=== PATIENT | female | born 1955 | race Native Hawaiian/Other Pacific Islander ===

== ENCOUNTER → 2018-07-12 11:12 | Outpatient (CLI) | payer OTHER, SELFPAY ==
[2018-07-12 11:56] LABS: Add Manual Diff / Slide Review NO; Basophils Percent Auto 0.7 % (0-2); Hemoglobin 14.9 g/dL (12.0-16.0); Lymphocytes Percent Auto 36.4 % (25-40); Mean Corpuscular HGB Conc 35.5 % (30-36); Mean Corpuscular Volume 87.5 fL (80-100); Monocytes Percent Auto 6.1 % (3-14); Neutrophils Absolute Auto 4300 /uL (1500-7000); Neutrophils Percent Auto 49.8 % (50-75); Platelet Count 270 X10^3/uL (150-400); Red Cell Distribution Width 14.6 % (11.6-14.8); White Blood Cell Count 8.6 X10^3/uL (4.5-11.0)
[2018-07-12 12:03] LABS: Alanine Aminotransferase 31 IU/L (9-52); Albumin 4.9 g/dL (3.5-5.0); Albumin Globulin Ratio 1.3 (1.0-2.8); Alkaline Phosphatase 54 U/L (38-126); Aspartate Aminotransferase 26 IU/L (14-36); BUN Creatinine Ratio 13.8 (6-22); Bilirubin Total 0.5 mg/dL (0.2-1.3); Blood Urea Nitrogen 11 mg/dL (7-17); Calcium 9.5 mg/dL (8.4-10.2); Carbon Dioxide 27 mmol/L (22-32); Chloride 104 mmol/L (98-107); Estimated Glomerular Filt Rate > 60.0 mL/min (>60); Globulin 3.7 g/dL (1.7-4.1); Glucose 71 mg/dL (80-110); HEMOLYSIS < 15 (0-50); Sodium 142 mmol/L (137-145); Total Protein 8.6 g/dL (6.3-8.2)
[2018-07-12 12:06] LABS: Rheumatoid Factor 14.2 IU/mL (<12.0)
[2018-07-12 12:17] LABS: Erythrocyte Sedimentation Rate 1 MM/HR (0-20)
[2018-07-14 13:21] LABS: ANA Screen NEGATIVE (Negative); DNA Antibody Crithidia IFA NEGATIVE (Negative); Rheumatoid Factor 24 IU/mL (< 14); Sjogren Antiboday SS-A <1.0 NEG AI (<1.0 NEGATIVE); Sjogren Antiboday SS-B <1.0 NEG AI (<1.0 NEGATIVE); Sm Antibody <1.0 NEG AI (<1.0 NEGATIVE); Sm/RNP Antibody <1.0 NEG AI (<1.0 NEGATIVE)
[2018-07-14 13:48] LABS: CCP Antibody (IgG) < 16 Units (< 20)
== END ==
PROVIDERS: Family Provider Family Medicine; PCP Family Medicine; Visit Provider Physician Assistant
DX: R05 Cough (principal); R06.00 Dyspnea, unspecified; R06.2 Wheezing; Z82.69 Family history of other diseases of the musculoskeletal system and connective tissue
CPT/HCPCS: 36415; 80053; 83516; 85025; 85651; 86038; 86430

== ENCOUNTER → 2023-01-04 15:04 | Outpatient (CLI) | payer OTHER, MEDICARE, SELFPAY | PROVIDERS: Family Provider Family Medicine; PCP Family Medicine; Visit Provider Nurse Practitioner Family | DX: R10.9 Unspecified abdominal pain (principal) | CPT/HCPCS: 87086 ==

== ENCOUNTER 2023-05-28 19:18 | Emergency (ER) | payer OTHER, MEDICARE, SELFPAY ==
--- NOTE | 2023-05-28 19:29 | ED_ITS ---
HPI - General Adult General Chief complaint: Fall Stated complaint: Migraine T-4 Time Seen by Provider: 05/28/23 19:23 Source: patient Mode of arrival: Ambulatory Limitations: no limitations History of Present Illness HPI narrative: Patient is a 67-year-old female. Not on anticoagulation. Is here for evaluation of headache and neck pain. She states that 4 days ago she was at a [employer]. She was sitting on a stool. The person next to her was falling out of her chair so she leaned over to try to help this individual causing herself to fall and hit her head on the ground. There was no loss of consciousness. She is not on blood thinners. Since that time she is had a headache all over her head. Feels like a pressure in her head. Is also having neck pain. No fevers. No chest pain or shortness of breath. She did take some Tylenol this morning without any improvement and then Tylenol and ibuprofen before coming here to the emergency department. She has had headaches in the past but not like this. Related Data Previous Rx's Medication Instructions Recorded Spacer #1 ea 07/12/18 albuterol sulfate 90 mcg/actuation 1 puff inhalation Q6H PRN 07/28/18 aerosol inhaler (ProAir HFA) shortness of breath or wheezing #18 grams fluticasone propionate 110 1 puff inhalation BID #12 grams 07/28/18 mcg/actuation HFA aerosol inhaler (Flovent HFA) Allergies Allergy/AdvReac Type Severity Reaction Status Date / Time levofloxacin Allergy Severe trouble Verified 05/28/23 19:30 breathing amoxicillin [From Augmentin] Allergy Intermediate hives Verified 05/28/23 19:30 clavulanic acid Allergy Intermediate hives Verified 05/28/23 19:30 [From Augmentin] Review of Systems Constitutional Constitutional: Reports system reviewed and no additional complaints, except as documented ENT Ears, Nose, Mouth, and Throat: Reports system reviewed and no additional complaints, except as documented Cardiovascular Cardiovascular: Reports system reviewed and no additional complaints, except as documented Respiratory Respiratory: Reports system reviewed and no additional complaints, except as documented Neurologic Neurologic: Reports system reviewed and no additional complaints, except as documented Hematologic/Lymphatic On Anticoagulants: No Patient History Social History Smoking Status: Never smoker second hand exposure: Yes (sometimes, I go to the casion.) alcohol intake: current (1 to 2 glasses of wine about twice a week.) substance use type: does not use Smoking Status: Never smoker Exam Initial Vital Signs Initial Vital Signs: Vital Signs Temperature 97.9 F 05/28/23 19:32 Pulse Rate 60 05/28/23 19:32 Respiratory Rate 18 05/28/23 19:32 Blood Pressure 169/76 H 05/28/23 19:32 Pulse Oximetry 99 05/28/23 19:32 Oxygen Delivery Method Room Air 05/28/23 19:32 HENNH Head: normal to inspection, normocephalic, atraumatic, No hematoma, No laceration, No palpable skull fracture and No raccoon eyes Resp Effort & Inspection: normal respiratory effort Auscultation: clear to auscultation bilaterally Cardio Rate: regular rate Rhythm: regular rhythm Back/Spine/Pelvis Cervical Spine: cervical ROM normal, cervical muscular tenderness and cervical spinal tenderness Neuro General: patient alert, patient awake, patient oriented x3 and moves all extremities Speech: speech normal Sensory Exam: no sensory deficits noted Extrem General: normal to inspection Scores Russian CT Head Rule Age <16 years old: No Patient on blood thinners: No Seizure after injury: No Exclusion: Patient NOT Excluded, Proceed to next steps GCS < 15 at 2 hr post trauma: No Suspected open or depressed skull fracture: No Any sign of basilar skull fracture (hemotympanum, raccoon eyes, Stevens's sign, CSF kerri-/rhinorrhea): No Two or more episodes of vomiting: No Age greater or equal to 65 years: Yes Retrograde amnesia to the event greater or equal to 30 min: No Dangerous Mechanism (pedestrian vs. mv, occupant ejected from mv, fall from >3 ft or > 5 stairs): No Recommendation: Consider CT. The [place] Head CT Rule cannot rule out need for Imaging. GCS Kite coma scale eye opening: Spontaneous Raoul coma scale verbal response: Orientated Raoul coma scale motor response: Obey commands Raoul coma scale total score: 15 Nexus Score for C-Spine Focal Neurologic deficit present: No Midline spinal tenderness present: Yes Altered level of conciousness present: No Intoxication present: No Distracting Injury Present: No Nexus Criteria for C-spine: 1 Course Orders Ordered: ED Orders 05/28/23 19:30 CT cervical spine wo con Stat CT head/brain wo con Stat Vital Signs Vital signs: Vital Signs - 8 hr 05/28/23 19:32 Temperature 97.9 F Pulse Rate 60 Respiratory Rate 18 Blood Pressure 169/76 H Pulse Oximetry 99 Oxygen Delivery Method Room Air Medical Decision Making Imaging Data CT scan - head: Radiologist's Impression: PROCEDURE: CT HEAD/BRAIN WO CON INDICATIONS: Severe headache after fall TECHNIQUE: Noncontrast 4.5 mm thick angled axial sections acquired from the foramen magnum to the vertex, with coronal and sagittal reformats. For radiation dose reduction, the following was used: automated exposure control, adjustment of mA and/or kV according to patient size. COMPARISON: [facility], CT, CT CERVICAL SPINE WO CON, 05/28/2023, 19:40. FINDINGS: Image quality: Excellent. CSF spaces: Basal cisterns are patent. No extra-axial fluid collections. The ventricles are symmetric in size and shape. Brain: No intracranial bleeds or masses. There is cerebral volume loss for age, with resultant ventricular and sulcal prominence. There are periventricular and deep white matter chronic small vessel ischemic changes. There is intracranial internal carotid artery atherosclerosis. Skull and face: Calvarium and visualized facial bones appear intact, without suspicious lesions. Sinuses: Visualized sinuses and mastoids are clear. IMPRESSION: No acute intracranial hemorrhage is seen. No acute intracranial pathology. CTA - brain/neck: Radiologist's Impression: PROCEDURE: CT CERVICAL SPINE WO CON INDICATIONS: Headache and neck pain after fall TECHNIQUE: Noncontrast 3 mm thick sections acquired from the skull base to the T4 level. Sagittal and coronal reformats were then constructed. For radiation dose reduction, the following was used: automated exposure control, adjustment of mA and/or kV according to patient size. COMPARISON: [facility], CT, CT HEAD/BRAIN WO CON, 05/28/2023, 19:40. FINDINGS: Image quality: This examination is somewhat limited by quantum mottle artifact. Bones: No fractures or dislocations. Visualized superior ribs are intact. Soft tissues: Prevertebral soft tissues are normal in thickness. No paravertebral hematomas. No apical pneumothoraces. IMPRESSION: Negative for fracture. MDM Narrative Medical decision making narrative: Patient declined the offer for medications here in the ER. Her head CT and cervical spine CT are negative. The event happened 4 days ago. Her symptoms are consistent with concussion. I did discuss this with her. No further workup required here in the ER. Will send home with instructions for symptom treatment. She was given return precautions. She expressed understanding and agreement with plan. Discharge Plan Departure Patient Disposition: Home Clinical Impression: Concussion Instructions: Concussion Activity Restrictions/Additional Instructions: You can eat like normal and sleep like normal. You can take Tylenol and ibuprofen for any headaches. Contact your primary doctor for a follow-up. Return to the emergency department for new or worsening symptoms. Prescriptions: No Action (DME) Spacer Qty: 1 0RF Dose Instruction: As directed Rx Instructions: As directed with inhaler albuterol sulfate [ProAir HFA] 90 mcg/actuation HFA aerosol inhaler 1 puff INHALATION Q6H PRN (Reason: shortness of breath or wheezing) Qty: 18 5RF Rx Instructions: administer with spacer fluticasone propionate [Flovent HFA] 110 mcg/actuation HFA aerosol inhaler 1 puff INHALATION BID Qty: 12 3RF Referrals: Autumn Davison DO [Primary Care Provider] - Stand Alone Forms: Patient Portal/API
[2023-05-28 19:32] VITALS: BP 169/76; PULSE 60; RESP 18; TEMP 36.6; O2SAT 99; BMI 24.4
--- NOTE | 2023-05-28 19:42 | PC.NURSE ---
ambulatory to CT
== END 2023-05-28 20:18 | disposition home or self-care (01) ==
PROVIDERS: Emergency Provider Emergency Medicine; Family Provider Family Medicine; PCP Family Medicine
DX: S06.0X0A Concussion without loss of consciousness, initial encounter (principal); M54.2 Cervicalgia; W07.XXXA Fall from chair, initial encounter
CPT/HCPCS: 70450; 72125; 99281; 99283

== ENCOUNTER → 2023-09-03 14:47 | Outpatient (CLI) | payer OTHER, MEDICARE, SELFPAY ==
[2023-09-03 15:29] LABS: Influenza A - CEPHEID Flu A NEGATIVE (NEGATIVE); Influenza B - CEPHEID Flu B NEGATIVE (NEGATIVE); Respiratory Syncytial Virus Negative (Negative)
[2023-09-03 15:53] LABS: COVID-19 CEPHEID 4-PLEX PCR Negative (Negative)
== END ==
PROVIDERS: Family Provider Family Medicine; PCP Family Medicine; Visit Provider Nurse Practitioner Family
DX: R05.1 Acute cough (principal)
CPT/HCPCS: 0241U